=== PATIENT | female | born 1995 | race Caucasian/White ===

== ENCOUNTER → 2020-02-11 | Outpatient (CLI) | payer OTHER ==
--- NOTE | 2020-02-11 13:30 | P.GSHP ---
History of Present Illness H&P Date: 02/11/20 Chief Complaint: Nodular left breast Katt is a 24 year old white female who noted a nodule in her left breast December 22. This nodule started to increase in size and became painful and she therefore presented to her primary care physician. An ultrasound of the left breast was performed distally and 6319 which revealed a 2.7 cm hypoechoic area. This was repeated on in the hypoechoic nodule was now decreased in size to 1.2 cm. She has never had a mammogram. She did not have an ultrasound of the right breast. Since the original ultrasound the patient was started on Keflix, resulting in decrease in size of the lesion. States that it is not painful at that site in a longer area was initially. She has no history of any, to the breast. She has never had infection in the breast in the past. She is not complaining of any nipple discharge or skin changes. She has not had biopsies of either breast or surgery in either breast in the past. She has not noted any other lumps masses or nodules in her breast. Her menstrual periods are regular and she has not had any recent changes in those. She is not taking any hormones. 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 Social History: Smoke: Negative Alcohol: Once a month Drugs: Negative - Constitutional Constitutional: Denies chills, Denies fever - EENT Eyes: denies blurred vision, denies pain Ears: deny: decreased hearing, tinnitus Ears, nose, mouth and throat: Denies headache, Denies sore throat - Breasts Breasts: bilateral: as per HPI - Cardiovascular Cardiovascular: Denies chest pain, Denies shortness of breath - Respiratory Respiratory: Denies cough, Denies 7 - Gastrointestinal Gastrointestinal: Denies abdominal pain, Denies diarrhea, Denies nausea, Denies vomiting - Genitourinary (Female) Genitourinary: Denies dysuria, Denies hematuria - Menstruation Menstruation: Reports period normal - Musculoskeletal Musculoskeletal: Denies myalgias - Integumentary Integumentary: Denies pruritus, Denies rash - Neurological Neurological: Denies numbness, Denies weakness - Psychiatric Psychiatric: Denies anxiety, Denies depression - Endocrine Endocrine: Denies fatigue, Denies weight change - Hematologic/Lymphatic Comment: none - Allergic/Immunologic Allergic/Immunologic: Reports as per HPI Past Medical History Past Medical History: No Reported History History of Any Multi-Drug Resistant Organisms: None Reported Past Surgical History: No Surgical Hx Reported Past Psychological History: No Psychological Hx Reported Smoking Status: Never smoker Past Alcohol Use History: None Reported Past Drug Use History: None Reported Medications and Allergies Home Medications Medication Instructions Recorded Confirmed Type No Known Home Medications 02/20/14 02/11/20 History Allergies Allergy/AdvReac Type Severity Reaction Status Date / Time Sulfa (Sulfonamide Allergy Rash/Hives Verified 02/11/20 12:46 Antibiotics) Surgical - Exam Vital Signs Temp Pulse Resp BP Pulse Ox 98.2 F 89 18 119/74 99 02/11/20 12:46 02/11/20 12:46 02/11/20 12:46 02/11/20 12:46 02/11/20 12:46 BMI 30.5 - General well developed, well nourished, no distress - Eyes normal ocular movement - ENT no hearing loss, no congestion - Neck no masses, trachea midline - Respiratory normal respiratory effort, clear to auscultation - Cardiovascular Rhythm: regular Heart Sounds: normal: S1, S2 - Abdomen Abdomen: soft, non tender, no guarding, no rigid, no rebound - Integumentary no rash, no abnormal pigmentation - Neurologic no disoriented, no combative - Musculoskeletal normal gait, normal posture - Psychiatric oriented to time, oriented to person, oriented to place, speech is normal, memory intact Breast exam: BRA 36C inspection: grade 2 ptosis bilateral, right breast smaller than the left breast Palpation: Right breast: Multi-positional exam fibrocystic changes, no dominant masses or nodules of concern Right axilla: No adenopathy of concern Left breast: Multi-positional exam no dominant masses or nodules of concern, palpation in the area of the mass was palpable prior to surgery revealed fibrocystic change at this time Left axilla: No adenopathy of concern Results Ultrasound results reviewed Assessment and Plan Assessment: Impression: 1. Prior left breast ultrasound lesion which has decreased in size 2. Prior palpable left breast mass as per patient which seems to have resolved at this time Plan: 1. Repeat left breast ultrasound to ascertain if the lesion is persistent if it is ultrasound guided drainage/biopsy 2. If the lesion has resolved. Follow clinically believe this to be fibrocystic disease which may have gotten infected 3. Patient encouraged to decrease caffeine intake as the lesions in the breast may be related to fibrocystic changes Cc: Dr. Marte CC: Monica Araujo encounter 45 minutes, > 50% of time in planning and counselling
[2020-02-11 13:46] VITALS: BP 119/74; PULSE 89; RESP 18; TEMP 98.2
== END | disposition home or self-care (01) ==
LOC: WWCWWP 12:34
PROVIDERS: ATTEND Surgery
DX: Z53.9 Procedure and treatment not carried out, unspecified reason (principal)

== ENCOUNTER → 2020-02-25 | Outpatient (CLI) | payer OTHER ==
--- NOTE | 2020-02-28 07:50 | USB ---
Reason for exam: clinical finding. History: Family history of breast cancer in maternal aunt at age 50. Physical Findings: Nurse Summary: patient denies concerns today, states left breast lesion was palpable and red before antibiotics (nurse TM). US Breast LT Left complete breast ultrasound includes all four quadrants, the retroareolar region and axilla. Finding demonstrates a 0.3 x 0.3 x 0.1cm hypoechoic lesion at dermis at 8 o'clock. Corresponds to palpable abnormality. Follow up if this fails to resolves. These results were verbally communicated with the patient and result sheet given to the patient on 02/25/20. ASSESSMENT: Probably benign, BI-RAD 3 RECOMMENDATION: Clinical management of the left breast. Manage patient on a clinical basis.
== END | disposition home or self-care (01) ==
LOC: RADUSWWP 14:40
PROVIDERS: ATTEND Surgery
DX: N63.20 Unspecified lump in the left breast, unspecified quadrant (principal)

== ENCOUNTER → 2020-03-10 | Outpatient (CLI) | payer OTHER ==
[2020-03-10 10:38] VITALS: BP 100/73; PULSE 84; RESP 16; TEMP 98.3
--- NOTE | 2020-03-10 10:46 | P.PN ---
Subjective Progress Note Date: 03/10/20 Principal diagnosis: mass in the left breast resolved Katt is a 24 year old white female who noted a nodule in her left breast December 22. This nodule started to increase in size and became painful and she therefore presented to her primary care physician. An ultrasound of the left breast was performed on 6319 which revealed a 2.7 cm hypoechoic area. This was repeated on in the hypoechoic nodule was now decreased in size to 1.2 cm. She has never had a mammogram. She did not have an ultrasound of the right breast. Since the original ultrasound the patient was started on Keflix, resulting in decrease in size of the lesion. States that it is not painful at that site in a longer area was initially. The patient is unable to feel anything of concern in her breasts at this time. She had a repeat ultrasound performed on which revealed a 0.3 x 0.1 cm l esion at 8:00 at the dermis. This corresponded to where she had a palpable change in the past. She has no history of any trauma the breast. She has never had infection in the breast in the past. She is not complaining of any nipple discharge or skin changes. She has not had biopsies of either breast or surgery in either breast in the past. She has not noted any other lumps masses or nodules in her breast. Her menstrual periods are regular and she has not had any recent changes in those. She is not taking any hormones. Caffeine: 1 cup /day Nicotine: Negative Chocolate: Occasional Family History: Maternal aunt: Breast cancer 2 paternal second cousins: Breast cancer Multiple history: Menarche: 13 G0, sexually active; BCP: none periods regular BCP: none hormones: none Surgical history: None Medical history: [place] palsy Social History: Smoke: Negative Alcohol: Once a month Drugs: Negative - Constitutional Constitutional: Denies chills, Denies fever - EENT Eyes: denies blurred vision, denies pain Ears: deny: decreased hearing, tinnitus Ears, nose, mouth and throat: Denies headache, Denies sore throat - Breasts Breasts: bilateral: as per HPI - Cardiovascular Cardiovascular: Denies chest pain, Denies shortness of breath - Respiratory Respiratory: Denies cough - Gastrointestinal Gastrointestinal: Denies abdominal pain, Denies diarrhea, Denies nausea, Denies vomiting - Genitourinary (Female) Genitourinary: Denies dysuria, Denies hematuria - Menstruation Menstruation: Reports period normal - Musculoskeletal Musculoskeletal: Denies myalgias - Integumentary Integumentary: Denies pruritus, Denies rash - Neurological Neurological: Denies numbness, Denies weakness - Psychiatric Psychiatric: Denies anxiety, Denies depression - Endocrine Endocrine: Denies fatigue, Denies weight change - Hematologic/Lymphatic Comment: none - Allergic/Immunologic Allergic/Immunologic: Reports as per HPI Objective - Vital Signs Vital signs: Vital Signs Temp 98.3 F 03/10/20 10:33 Pulse 84 03/10/20 10:33 Resp 16 03/10/20 10:33 BP 100/73 03/10/20 10:33 Pulse Ox 100 03/10/20 10:33 Intake & Output 03/09/20 03/10/20 03/10/20 18:59 06:59 18:59 Weight 78.018 kg - Constitutional General appearance: Present: average body habitus - EENT Eyes: Present: EOMI ENT: Present: hearing grossly normal - Integumentary Integumentary: Present: normal turgor - Musculoskeletal Musculoskeletal: Present: gait normal - Psychiatric Psychiatric: Present: A&O x's 3, appropriate affect, intact judgment & insight - Additional findings Additional findings: breast exam: BRA 36C Palpation: Left breast: Particular attention to the 8 o'clock position of the left breast does not reveal any palpable mass at this time Assessment and Plan Assessment: Impression: 1. Left breast ultrasound revealed a hypoechoic nodule which has decreased in size on most recent ultrasound 2. Probable mass has resolved Plan: 1. Close surveillance 2. Follow-up ultrasound in 6 months with physician exam at that time CC: DR. Marte encounter 15 minutes, > 50% of time in planning and counselling Time with Patient: Less than 30
== END | disposition home or self-care (01) ==
LOC: WWCWWP 10:24
PROVIDERS: ATTEND Surgery
DX: Z53.9 Procedure and treatment not carried out, unspecified reason (principal)

== ENCOUNTER → 2020-08-31 | Outpatient (CLI) | payer OTHER ==
--- NOTE | 2020-08-31 14:52 | USB ---
Reason for exam: clinical finding. History: Family history of breast cancer in maternal aunt at age 50. Physical Findings: Nurse Summary: Patient states infection from February, now resolved. Nodular, movable (nurse mj). US Breast Limited LT Left limited breast ultrasound including focal area of concern, retroareolar and axilla demonstrates no cystic or solid lesion seen. Scanned 6-9 o'clock. These results were verbally communicated with the patient and result sheet given to the patient on 08/31/20. ASSESSMENT: Negative, BI-RAD 1 RECOMMENDATION: Routine screening mammogram of both breasts at age 40. (unless clinical indication to start sooner)
== END | disposition home or self-care (01) ==
LOC: RADUSWWP 13:31
PROVIDERS: ATTEND Surgery
DX: R92.8 Other abnormal and inconclusive findings on diagnostic imaging of breast (principal)

== ENCOUNTER → 2020-09-07 | Outpatient (CLI) | payer OTHER ==
[2020-09-07 10:50] VITALS: BP 113/73; PULSE 68; RESP 16; TEMP 98.5
--- NOTE | 2020-09-07 11:01 | P.PN ---
Subjective Progress Note Date: 09/07/20 Principal diagnosis: fibrocystic breast changes/resolved left breast mass mass in the left breast resolved Katt is a 25 year old white female who noted a nodule in her left breast December 23, 2019. This nodule started to increase in size and became painful and she therefore presented to her primary care physician. An ultrasound of the left breast was performed on 6319 which revealed a 2.7 cm hypoechoic area. This was repeated on and the hypoechoic nodule was now decreased in size to 1.2 cm. She has never had a mammogram. She did not have an ultrasound of the right breast. Since the original ultrasound the patient was started on Keflix, resulting in decrease in size of the lesion. States that it is not painful at that site in a longer area was initially. She had a repeat ultrasound performed on which revealed a 0.3 x 0.1 cm lesion at 8:00 at the dermis. This corresponded to where she had a palpable change in the past. Her most recent ultrasound was on , this did not reveal any cystic or solid lesions. The scan was from 6 to 9 o'clock position and in the vicinity of the prior cyst. This was a negative BIRADS 1 and routine screening mammogram of both breasts at age 39 was recommended. She has no history of any trauma the breast. No recent infection of the breast. She is not complaining of any nipple discharge or skin changes. She has not had biopsies of either breast or surgery in either breast in the past. She has not noted any other lumps masses or nodules in her breast. Her menstrual periods are regular and she has not had any recent changes in those. She is not taking any hormones. 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 Social History: Smoke: Negative Alcohol: Once a month Drugs: Negative - Constitutional Constitutional: Denies chills, Denies fever - EENT Eyes: denies blurred vision, denies pain Ears: deny: decreased hearing, tinnitus Ears, nose, mouth and throat: Denies headache, Denies sore throat - Breasts Breasts: bilateral: as per HPI - Cardiovascular Cardiovascular: Denies chest pain, Denies shortness of breath - Respiratory Respiratory: Denies cough - Gastrointestinal Gastrointestinal: Denies abdominal pain, Denies diarrhea, Denies nausea, Denies vomiting - Genitourinary (Female) Genitourinary: Denies dysuria, Denies hematuria - Menstruation Menstruation: Reports period normal - Musculoskeletal Musculoskeletal: Denies myalgias - Integumentary Integumentary: Denies pruritus, Denies rash - Neurological Neurological: Denies numbness, Denies weakness - Psychiatric Psychiatric: Denies anxiety, Denies depression - Endocrine Endocrine: Denies fatigue, Denies weight change - Hematologic/Lymphatic Comment: none - Allergic/Immunologic Allergic/Immunologic: Reports as per HPI Objective - Vital Signs Vital signs: Vital Signs Temp 98.5 F 09/07/20 10:47 Pulse 68 09/07/20 10:47 Resp 16 09/07/20 10:47 BP 113/73 09/07/20 10:47 Pulse Ox 100 09/07/20 10:47 Intake & Output 09/06/20 09/07/20 09/07/20 18:59 06:59 18:59 Weight 77.111 kg - Exam BMI 30.1 - Constitutional General appearance: Present: cooperative - EENT Eyes: Present: EOMI ENT: Present: hearing grossly normal - Neck Neck: Present: normal ROM - Respiratory Respiratory: bilateral: CTA - Cardiovascular Rhythm: regular Heart sounds: normal: S1, S2 - Integumentary Integumentary: Present: normal turgor - Musculoskeletal Musculoskeletal: Present: gait normal - Psychiatric Psychiatric: Present: A&O x's 3, appropriate affect - Additional findings Additional findings: breast exam: BRA 36C inspection: bilateral grade 3 ptosis palpation: right breast: Multiple positional exam fibrocystic changes, no dominant masses or nodules of concern right breast slightly smaller than left breast Right axilla: No adenopathy of concern Left breast: Multi-positional exam fibrocystic changes no dominant masses or nodules of concern no palpable cystic or nodular abnormality of concern Left axilla: No adenopathy of concern Assessment and Plan Assessment: Impression: 1. Bilateral fibrocystic breast changes 2. No dominant mass or nodule of concern which would warrant biopsy at this time 3. Causes of fibrocystic changes discussed with the patient she understands and will consider lifestyle modification i.e. decreased caffeine intake Plan: 1. Repeat physician exam in 1 year CC: Dr. Marte encounter 15 minutes, time spent in reviewing records, examination and counselling.
== END | disposition home or self-care (01) ==
LOC: WWCWWP 10:18
PROVIDERS: ATTEND Surgery
DX: Z53.9 Procedure and treatment not carried out, unspecified reason (principal)

== ENCOUNTER → 2022-05-09 | Outpatient (CLI) | payer OTHER ==
[2022-05-09 11:08] VITALS: BP 132/73; PULSE 74; RESP 16; TEMP 98.2
--- NOTE | 2022-05-09 12:05 | P.PN ---
Subjective Progress Note Date: 05/09/22 Principal diagnosis: skin changes of the breast r/o abcess fibrocystic breast changes/resolved left breast mass mass in the left breast resolved Katt is a 27 year old white female who noted a nodule in her left breast December 23, 2019. This nodule started to increase in size and became painful and she therefore presented to her primary care physician. An ultrasound of the left breast was performed on 6319 which revealed a 2.7 cm hypoechoic area. This was repeated on and the hypoechoic nodule was now decreased in size to 1.2 cm. She has never had a mammogram. She did not have an ultrasound of the right breast. Since the original ultrasound the patient was started on Keflix, resulting in decrease in size of the lesion. States that it is not painful at that site in a longer area was initially. She had a repeat ultrasound performed on which revealed a 0.3 x 0.1 cm lesion at 8:00 at the dermis. This corresponded to where she had a palpable change in the past. Her most recent ultrasound was on , this did not reveal any cystic or solid lesions. The scan was from 6 to 9 o'clock position and in the vicinity of the prior cyst. This was a negative BIRADS 1 and routine screening mammogram of both breasts at age 39 was recommended. The patient mid February developed a spot on her left breast in the lateral aspect, it became more red and raised. It has improved at this time. She also noted a spot in her other breast two weeks ago. She has not had any fever or chills, she has not had any drainage. She has no history of any trauma the breast. No recent infection of the breast. This is not complaining of any pain in her breast. She is not complaining of any nipple discharge or skin changes. She has not had biopsies of either breast or surgery in either breast in the past. She has not noted any other lumps masses or nodules in her breast. Her menstrual periods are regular and she has not had any recent changes in those. She is not taking any hormones. 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 Social History: Smoke: Negative Alcohol: Once a month Drugs: Negative - Constitutional Constitutional: Denies chills, Denies fever - EENT Eyes: denies blurred vision, denies pain Ears: deny: decreased hearing, tinnitus Ears, nose, mouth and throat: Denies headache, Denies sore throat - Breasts Breasts: bilateral: as per HPI - Cardiovascular Cardiovascular: Denies chest pain, Denies shortness of breath - Respiratory Respiratory: Denies cough - Gastrointestinal Gastrointestinal: Denies abdominal pain, Denies diarrhea, Denies nausea, Denies vomiting - Genitourinary (Female) Genitourinary: Denies dysuria, Denies hematuria - Menstruation Menstruation: Reports period normal - Musculoskeletal Musculoskeletal: Denies myalgias - Integumentary Integumentary: Denies pruritus, Denies rash - Neurological Neurological: Denies numbness, Denies weakness - Psychiatric Psychiatric: Denies anxiety, Denies depression - Endocrine Endocrine: Denies fatigue, Denies weight change - Hematologic/Lymphatic Comment: none - Allergic/Immunologic Allergic/Immunologic: Reports as per HPI Objective - Vital Signs Vital signs: Vital Signs Temp 98.2 F 05/09/22 11:05 Pulse 74 05/09/22 11:05 Resp 16 05/09/22 11:05 BP 132/73 05/09/22 11:05 Pulse Ox 99 05/09/22 11:05 FiO2 Intake & Output 05/08/22 05/09/22 05/09/22 18:59 06:59 18:59 Weight 84.368 kg - Constitutional General appearance: Present: cooperative - EENT Eyes: Present: EOMI ENT: Present: hearing grossly normal - Neck Neck: Present: normal ROM - Respiratory Respiratory: bilateral: CTA - Cardiovascular Rhythm: regular Heart sounds: normal: S1, S2 - Gastrointestinal General gastrointestinal: Present: soft - Integumentary Integumentary: Present: normal turgor - Musculoskeletal Musculoskeletal: Present: gait normal - Psychiatric Psychiatric: Present: A&O x's 3, appropriate affect, intact judgment & insight - Additional findings Additional findings: Breast Exam: BRA: 38C inspection: Excoriated skin changes lateral aspect of the nipple areolar complex on the left, beginning of excoriated skin changes in the medial areolar complex on the right, bilateral grade 2 ptosis Palpation: Right breast: Multi-positional exam no dominant masses or nodules of concern, fibrocystic changes Right axilla: No adenopathy of concern Left breast: Multi-positional exam fibrocystic changes no dominant masses or nodules of concern Left axilla: No adenopathy of concern Assessment and Plan Assessment: Impression: Fibrocystic breast changes Skin changes bilateral breast possible psoriasis Plan: At this time there is nothing which would warrant interventional biopsy Appointment with dermatology Follow-up One month
== END ==
LOC: WWCWWP 09:42
PROVIDERS: ATTEND Surgery
DX: N60.19 Diffuse cystic mastopathy of unspecified breast (principal); G51.0 Bell's palsy; Z88.2 Allergy status to sulfonamides; Z80.3 Family history of malignant neoplasm of breast

== ENCOUNTER → 2022-06-21 | Outpatient (CLI) | payer OTHER ==
[2022-06-21 09:18] VITALS: BP 115/74; PULSE 71; RESP 17; TEMP 98
--- NOTE | 2022-06-21 09:42 | P.PN ---
Subjective Progress Note Date: 06/21/22 skin changes of the breast r/o abcess fibrocystic breast changes/resolved left breast mass mass in the left breast resolved Katt is a 27 year old white female who noted a nodule in her left breast December 23, 2019. This nodule started to increase in size and became painful and she therefore presented to her primary care physician. An ultrasound of the left breast was performed on 6319 which revealed a 2.7 cm hypoechoic area. This was repeated on and the hypoechoic nodule was now decreased in size to 1.2 cm. She has never had a mammogram. She did not have an ultrasound of the right breast. Since the original ultrasound the patient was started on Keflix, resulting in decrease in size of the lesion. States that it is not painful at that site in a longer area was initially. She had a repeat ultrasound performed on which revealed a 0.3 x 0.1 cm lesion at 8:00 at the dermis. This corresponded to where she had a palpable change in the past. Her most recent ultrasound was on , this did not reveal any cystic or solid lesions. The scan was from 6 to 9 o'clock position and in the vicinity of the prior cyst. This was a negative BIRADS 1 and routine screening mammogram of both breasts at age 39 was recommended. The patient mid February developed a spot on her left breast in the lateral aspect, it became more red and raised. It has improved at this time. She also noted a spot in her other breast two weeks ago. She has not had any fever or chills, she has not had any drainage. She has no history of any trauma the breast. No recent infection of the breast. This is not complaining of any pain in her breast. She is not complaining of any nipple discharge or skin changes. She has not had biopsies of either breast or surgery in either breast in the past. She has not noted any other lumps masses or nodules in her breast. Her menstrual periods are regular and she has not had any recent changes in those. She is not taking any hormones. 06-21-22 The patient was seen on 05-09-22 with a complaint of skin changes in the periareolar region of both breasts. She has since seen a surety bond agent and has been diagnosed with eczema. She is not complaining of any lumps masses or nodules in either breast. She was treated with aristocort which she used for 2 weeks. She is presently on elindel a cream for 1 month. She will only follow up if there is a problem. Caffeine: 1 cup /day Nicotine: Negative Chocolate: Occasional Family History: Maternal aunt: Breast cancer 2 paternal second cousins: Breast cancer Multiple history: Menarche: 13 G0, sexually active; BCP: none periods regular BCP: none hormones: none Surgical history: None Medical history: Mousie palsy Social History: Smoke: Negative Alcohol: Once a month Drugs: Negative - Constitutional Constitutional: Denies chills, Denies fever - EENT Eyes: denies blurred vision, denies pain Ears: deny: decreased hearing, tinnitus Ears, nose, mouth and throat: Denies headache, Denies sore throat - Breasts Breasts: bilateral: as per HPI - Cardiovascular Cardiovascular: Denies chest pain, Denies shortness of breath - Respiratory Respiratory: Denies cough - Gastrointestinal Gastrointestinal: Denies abdominal pain, Denies diarrhea, Denies nausea, Denies vomiting - Genitourinary (Female) Genitourinary: Denies dysuria, Denies hematuria - Menstruation Menstruation: Reports period normal - Musculoskeletal Musculoskeletal: Denies myalgias - Integumentary Integumentary: Denies pruritus, Denies rash - Neurological Neurological: Denies numbness, Denies weakness - Psychiatric Psychiatric: Denies anxiety, Denies depression - Endocrine Endocrine: Denies fatigue, Denies weight change - Hematologic/Lymphatic Comment: none - Allergic/Immunologic Allergic/Immunologic: Reports as per HPI Objective - Vital Signs Vital signs: Vital Signs Temp 98 F 06/21/22 09:15 Pulse 71 06/21/22 09:15 Resp 17 06/21/22 09:15 BP 115/74 06/21/22 09:15 Pulse Ox 97 06/21/22 09:15 FiO2 Intake & Output 06/20/22 06/21/22 06/21/22 18:59 06:59 18:59 Weight 81.647 kg - Integumentary Integumentary Comment(s): Emanation is limited to the periareolar areas of the breast. The areas which previously had eczema-like changes have resolved. Assessment and Plan Assessment: Impression: Eczema bilateral periareolar regions resolved Plan: Follow up as needed CC: Dr. Back
== END | disposition home or self-care (01) ==
LOC: WWCWWP 09:04
PROVIDERS: ATTEND Surgery
DX: Z53.9 Procedure and treatment not carried out, unspecified reason (principal)